=== PATIENT | female | born 1990 | race Caucasian/White ===

== ENCOUNTER 2020-10-19 00:02 | Inpatient (IN) | payer OTHER ==
[~2020-10-19] VITALS: Ht 162.6 cm; Wt 83.9 kg
[2020-10-19 02:48] LABS: HCT 35.1 % (37.0-47.0); HGB 11.5 g/dl (12.5-16.0); MCHC 32.8 g/dL (32.0-36.0); MCV 82.4 fL (78.0-100.0); MPV 11.3 fL (6.0-9.5); RBC 4.26 M/uL (4.20-5.40); RDW 15.7 % (11.5-14.0); WBC 15.8 K/uL (4.0-10.5)
[2020-10-19 03:06] LABS: BILIRUBIN - TOTAL 0.5 mg/dL (0.2-1.0); BUN/CREAT RATIO (CALC) 15.4 RATIO; CREATININE 0.52 mg/dL (0.51-0.95); GLOBULIN (CALCULATION) 3.6 g/dL; POTASSIUM 3.7 mmol/L (3.5-5.1); TOTAL PROTEIN 6.6 g/dL (6.4-8.2)
[2020-10-20 04:37] LABS: HCT 26.7 % (37.0-47.0); HGB 8.6 g/dL (12.5-16.0)
== END 2020-10-21 15:01 | disposition home or self-care (01) | DRG 806 ==
LOC: FOD 00:02 → FOB 00:02 → FOD 00:50 → FOB 00:57
PROVIDERS: ADMIT Obstetrics & Gynecology
PROC: 10E0XZZ Delivery of Products of Conception, External Approach (ICD-10-PCS; principal; 2020-10-19)
PROC: 0KQM0ZZ Repair Perineum Muscle, Open Approach (ICD-10-PCS; 2020-10-19)
DX: O24.420 Gestational diabetes mellitus in childbirth, diet controlled (principal); D62 Acute posthemorrhagic anemia; Z37.0 Single live birth; Z3A.39 39 weeks gestation of pregnancy; O99.214 Obesity complicating childbirth; Z20.822 Contact with and (suspected) exposure to COVID-19; O99.02 Anemia complicating childbirth; O99.52 Diseases of the respiratory system complicating childbirth; J45.909 Unspecified asthma, uncomplicated; O70.1 Second degree perineal laceration during delivery; O36.63X0 Maternal care for excessive fetal growth, third trimester, not applicable or unspecified
CPT/HCPCS: 36415; 80053; 85014; 85018; 86850; 86900; 86901; J2405; J2916; J7120; J7121; U0002